=== PATIENT | female | born 1995 | race Caucasian/White ===

== ENCOUNTER 2016-03-14 12:57 | Emergency (ER) | payer OTHER ==
[2016-03-14] MEDS ORDERED: ONDANSETRON 4 MG TAB.RAPDIS PO ONE (13:40)
--- NOTE | 2016-03-14 13:41 | ER Document Report ---
ED Medical Screen (RME) - General Stated Complaint: HEAD INJURY Mode of Arrival: Ambulatory Information source: Patient Notes: Patient states that she hit her head on a microwave oven while at work. Patient denies any loss of consciousness. Patient does report some nausea but denies any vomiting. Patient complains of some dizziness. Patient states that she has not eaten at all today. hx: PTSD, anxiety I have greeted and performed a rapid initial assessment of this patient. A comprehensive ED assessment and evaluation of the patient, analysis of test results and completion of the medical decision making process will be conducted by additional ED providers. TRAVEL OUTSIDE OF THE [place] IN LAST 30 DAYS: No - Related Data Allergies/Adverse Reactions: oxycodone HCl [From Percocet] Adverse Reaction (Verified 03/14/16 13:38) Past Medical History Psychiatric Medical History: Reports: Hx Anxiety, Hx Depression Past Surgical History: Reports: Hx Adenoidectomy, Hx Tonsillectomy - Immunizations Hx Diphtheria, Pertussis, Tetanus Vaccination: Yes - 03/23/13
--- NOTE | 2016-03-14 15:02 | ER Document Report ---
ED Head/Face/Scalp Injury - General Chief Complaint: Head Injury Stated Complaint: HEAD INJURY Time seen by provider: 15:02 Mode of Arrival: Ambulatory Information source: Patient Notes: 20-year-old female hit the top of her head on the microwave twice at work today at [employer] at 7:30 this morning. She has felt nauseated and dizzy since. No loss of consciousness, no fall, no vomiting, Zofran has helped the nausea but she still feels slightly dizzy without vertigo when she stands. Denies . TRAVEL OUTSIDE OF THE [place] IN LAST 30 DAYS: No - Related Data Allergies/Adverse Reactions: oxycodone HCl [From Percocet] Adverse Reaction (Verified 03/14/16 13:38) Past Medical History - General Information source: Patient - Social History Smoking Status: Unknown if Ever Smoked Chew tobacco use (# tins/day): No Frequency of alcohol use: None Drug Abuse: None Lives with: Family Family History: Reviewed & Not Pertinent Patient has suicidal ideation: No Patient has homicidal ideation: No Renal/ Medical History: Denies: Hx Peritoneal Dialysis Psychiatric Medical History: Reports: Hx Anxiety, Hx Depression Past Surgical History: Reports: Hx Adenoidectomy, Hx Tonsillectomy - Immunizations Hx Diphtheria, Pertussis, Tetanus Vaccination: Yes - 03/23/13 Review of Systems - Review of Systems Constitutional: No symptoms reported EENT: No symptoms reported Cardiovascular: No symptoms reported Respiratory: No symptoms reported Gastrointestinal: No symptoms reported Genitourinary: No symptoms reported Female Genitourinary: No symptoms reported Musculoskeletal: See HPI Skin: No symptoms reported Hematologic/Lymphatic: No symptoms reported Neurological/Psychological: See HPI Physical Exam - Vital signs Vitals: Temp Pulse Resp BP Pulse Ox 97.5 F 77 14 115/48 L 97 03/14/16 13:38 03/14/16 13:38 03/14/16 13:38 03/14/16 13:38 03/14/16 13:38 Interpretation: Normal - General General appearance: Appears well, Alert In distress: None - HEENT Head: Normocephalic, Atraumatic Eyes: Normal Conjunctiva: Normal Extraocular movements intact: Yes Pupils: PERRL Nerve palsy: No Tympanic membrane: Normal Nasal: Normal Mouth/Lips: Normal Pharynx: Normal Neck: Supple. No: Lymphadenopathy - Respiratory Respiratory status: No respiratory distress Chest status: Nontender Breath sounds: Normal Chest palpation: Normal - Cardiovascular Rhythm: Regular Heart sounds: Normal auscultation Murmur: No - Abdominal Inspection: Normal Distension: No distension Bowel sounds: Normal Tenderness: Nontender. No: Tender Organomegaly: No organomegaly - Back Back: Normal, Nontender - Extremities General upper extremity: Normal inspection, Nontender, Normal color, Normal ROM , Normal temperature General lower extremity: Normal inspection, Nontender, Normal color, Normal ROM , Normal temperature, Normal weight bearing. No: Tammy's sign - Neurological Neuro grossly intact: Yes Cognition: Normal Orientation: AAOx4 Nii Coma Scale Eye Opening: Spontaneous Nii Coma Scale Verbal: Oriented [place] Coma Scale Motor: Obeys Commands Nii Coma Scale Total: 15 Speech: Normal Motor strength normal: LUE, RUE, LLE, RLE Sensory: Normal - Psychological Associated symptoms: Normal affect, Normal mood - Skin Skin Temperature: Warm Skin Moisture: Dry Skin Color: Normal Skin irregularity: negative: Rash Course - Re-evaluation Re-evalutation: 03/14/16 15:37 Vitals are stable. I have consulted with the supervisory physician per [facility] Guidelines. Dr. Walsh for ct scan order. Gait stable. No ataxia. Patient is drinking alesia bentley. 03/14/16 16:18 CT is negative. - Vital Signs Vital signs: Temp Pulse Resp BP Pulse Ox 97.5 F 77 14 115/48 L 97 03/14/16 13:38 03/14/16 13:38 03/14/16 13:38 03/14/16 13:38 03/14/16 13:38 Discharge - Discharge Clinical Impression: head injury, Nausea, Dizziness Contusion Qualifiers: Encounter type: initial encounter Contusion area: head Contusion of head detail : scalp Qualified Code(s): S00.03XA - Contusion of scalp, initial encounter Condition: Good Disposition: HOME, SELF-CARE Instructions: Head Injury Precautions ([facility]), Nausea or Vomiting, Nonspecific ( [facility]), Dizziness ([facility]), Contusion ([facility]), Neurologist Additional Instructions: eat before you go to work plenty of fluids tylenol for discomfort to er any concerns see neurologist if the dizziness persists. Forms: Return to Work Referrals: YOEL VALENTE MD [ACTIVE STAFF] - Follow up as needed
[2016-03-14 16:32] VITALS: BP 107/50
== END 2016-03-14 16:33 | disposition home or self-care (01) ==
LOC: ER 12:57
DX: S00.03XA Contusion of scalp, initial encounter (principal); R11.0 Nausea; R42 Dizziness and giddiness; W22.09XA Striking against other stationary object, initial encounter; Y92.511 Restaurant or cafe as the place of occurrence of the external cause; Y99.0 Civilian activity done for income or pay; Z88.6 Allergy status to analgesic agent
CPT/HCPCS: 99284; 82962; 70450; S0119

== ENCOUNTER → 2018-02-16 | Outpatient (CLI) | payer OTHER ==
--- NOTE | 2018-02-16 11:52 | RADIOLOGY REPORT (SQ) ---
EXAM DESCRIPTION: MRI RT LOWER JOINT WITHOUT COMPLETED DATE/TIME: 02/16/2018 8:02 am REASON FOR STUDY: RIGHT KNEE PAIN (M25.561) M25.561 PAIN IN RIGHT KNEE COMPARISON: None. TECHNIQUE: Rightknee images acquired and stored on PACS. Multiplanar images include fat sensitive s equences as T1, water sensitive sequences as FST2 or STIR, cartilage sensitive sequences as FSPD, and gradient echo sequences. LIMITATIONS: None. FINDINGS: JOINT AND BURSAE: No effusion. BONE CORTEX AND MARROW: No alteration of signal to suggest marrow replacement. No worrisome bone lesi ons. No occult fracture. ACL: Intact. No degeneration or ganglion cyst. PCL: Intact. MCL: Intact. No periligamentous edema or fluid. LCL: Intact. No periligamentous edema or fluid. MEDIAL MENISCUS: No tears. No abnormal signal. LATERAL MENISCUS: No tears. No abnormal signal. MEDIAL COMPARTMENT: Cartilage preserved. No bone bruises or reactive marrow edema. No osteophytes. LATERAL COMPARTMENT: Cartilage preserved. No bone bruises or reactive marrow edema. No osteophytes. PATELLA: No chondromalacia. No subchondral cysts. Medial and lateral retinacula intact. EXTENSOR MECHANISM: Intact. Quadriceps and patella tendons normal. SOFT TISSUES: Adjacent muscles and subcutaneous tissues normal. Normal flow void in popliteal artery and vein. OTHER: No other significant finding. IMPRESSION: NORMAL MRI OF THE KNEE. TECHNICAL DOCUMENTATION: JOB ID: [id number] [employer]- All Rights Reserved Reading location - IP/workstation name: [facility]
== END ==
LOC: RAD 07:12
PROVIDERS: ATTEND Family Medicine
DX: M25.561 Pain in right knee (principal); M79.89 Other specified soft tissue disorders

== ENCOUNTER 2019-02-02 18:52 | Emergency (ER) | payer OTHER ==
--- NOTE | 2019-02-02 19:08 | ER Document Report ---
ED Medical Screen (RME) - General Chief Complaint: Vag Bleeding, +preg <12wks Stated Complaint: VAGINAL BLEEDING Time Seen by Provider: 02/02/19 19:03 Primary Care Provider: HANNAH MARCUS MD [Primary Care Provider] - Follow up as needed Mode of Arrival: Ambulatory Information source: Patient Notes: Otherwise healthy 23-year-old female presents emergency department with vaginal bleeding in the setting of . Patient is a . She states she is approximately 8 weeks and started spotting just a few hours prior to arrival. She also reports she has Rh- blood type. She has not received RhoGam during this . Denies abdominal pain, nausea, vomiting, diarrhea. I have greeted and performed a rapid initial assessment of this patient. A comprehensive ED assessment and evaluation of the patient, analysis of test results and completion of the medical decision making process will be conducted by additional ED providers. I have specifically instructed the patient or family members with the patient to immediately return to any nursing staff should anything change in the patient's condition or with their chief complaint. TRAVEL OUTSIDE OF THE [place] IN LAST 30 DAYS: No - Related Data Allergies/Adverse Reactions: oxycodone HCl [From Percocet] Adverse Reaction (Verified 02/02/19 19:02) Past Medical History Renal/ Medical History: Denies: Hx Peritoneal Dialysis Psychiatric Medical History: Reports: Hx Anxiety, Hx Depression Past Surgical History: Reports: Hx Adenoidectomy, Hx Tonsillectomy - Immunizations Hx Diphtheria, Pertussis, Tetanus Vaccination: Yes - 03/23/13 Physical Exam - Vital signs Vitals: Temp Pulse Resp BP Pulse Ox 98.6 F 82 16 109/40 L 100 02/02/19 19:01 02/02/19 19:01 02/02/19 19:01 02/02/19 19:01 02/02/19 19:01 Course - Vital Signs Vital signs: Temp Pulse Resp BP Pulse Ox 98.6 F 82 16 109/40 L 100 02/02/19 19:01 02/02/19 19:01 02/02/19 19:01 02/02/19 19:01 02/02/19 19:01 Doctor's Discharge - Discharge Referrals: HANNAH MARCUS MD [Primary Care Provider] - Follow up as needed
[2019-02-02 19:34] LABS: ABSOLUTE EOSINOPHILS # (AUTO) 0.2 10^3/uL (0.0-0.6); ABSOLUTE LYMPHOCYTES (AUTO) 1.9 10^3/uL (0.5-4.7); ABSOLUTE MONOCYTES (AUTO) 0.4 10^3/uL (0.1-1.4); ABSOLUTE NEUT (AUTO) 4.6 10^3/uL (1.7-8.2); BASOPHILS % (AUTO) 0.3 % (0-2); EOSINOPHILS % (AUTO) 3.1 % (0-6); HEMATOCRIT 34.7 % (36.0-47.0); HEMOGLOBIN 12.1 g/dL (12.0-15.5); LYMPHOCYTES % (AUTO) 26.2 % (13-45); MEAN CORPUSCULAR HEMOGLOBIN 30.2 pg (27.0-33.4); MEAN CORPUSCULAR VOLUME 86 fl (80-97); MONOCYTES % (AUTO) 5.3 % (3-13); PLATELET COUNT 121 10^3/uL (150-450); RED BLOOD COUNT 4.02 10^6/uL (3.72-5.28); RED CELL DISTRIBUTION WIDTH 12.8 % (11.5-14.0); SEGMENTED NEUTROPHILS % (AUTO) 65.1 % (42-78); TOTAL CELLS COUNTED % (AUTO) 100 %; WHITE BLOOD COUNT 7.1 10^3/uL (4.0-10.5)
[2019-02-02 19:42] LABS: APPEARANCE,URINE SLIGHTLY-CLOUDY; BILIRUBIN,URINE NEGATIVE (NEGATIVE); COLOR,URINE YELLOW; GLUCOSE, URINE NEGATIVE (NEGATIVE); KETONES,URINE NEGATIVE (NEGATIVE); LEUKOCYTE ESTERASE,URINE TRACE (NEGATIVE); NITRITE,URINE NEGATIVE (NEGATIVE); PROTEIN,URINE NEGATIVE (NEGATIVE); URINE SPECIFIC GRAVITY 1.024
[2019-02-02 19:53] LABS: ALBUMIN 4.1 g/dL (3.5-5.0); ALKALINE PHOSPHATASE 42 U/L (38-126); ANION GAP 9 (5-19); ASPARTATE AMINO TRANSFERASE 20 U/L (14-36); BILIRUBIN,DIRECT 0.1 mg/dL (0.0-0.4); BILIRUBIN,TOTAL 0.5 mg/dL (0.2-1.3); BLOOD UREA NITROGEN 10 mg/dL (7-20); CALCIUM 9.5 mg/dL (8.4-10.2); CARBON DIOXIDE 24 mmol/L (22-30); CHLORIDE 105 mmol/L (98-107); GLUCOSE 82 mg/dL (75-110); POTASSIUM 3.9 mmol/L (3.6-5.0); TOTAL PROTEIN 6.8 g/dL (6.3-8.2)
--- NOTE | 2019-02-02 21:36 | RADIOLOGY REPORT (SQ) ---
EXAM DESCRIPTION: US LESS THAN 14 WEEKS COMPLETED DATE/TME: 02/02/2019 19:11 CLINICAL HISTORY: 23 years, Female, 8 weeks , vaginal bleed COMPARISON: None. TECHNIQUE: LIMITATIONS: None. FINDINGS: There is a live 9 week 3 day IUP, based on a crown-rump length of 2.7 cm. Embryonic cardiac activity was measured at 165 bpm. There is a 3.8 x 3.6 x 0.7 cm subchorionic hemorrhage, posteriorly. The uterus measures 9.7 x 9.6 x 8.4 cm. The right ovary is unremarkable. The left ovary was not visualized. The cervix measures 3.5 cm and is closed. IMPRESSION: Live IUP with a subchorionic hemorrhage copyright 2010 [employer]- All Rights Reserved
[2019-02-02] MEDS ORDERED: ONDANSETRON ODT 4 MG TAB (6 TAB/ER DISP) PO PRN (21:55)
--- NOTE | 2019-02-02 21:57 | ER Document Report ---
ED GI/ - General Chief Complaint: Vag Bleeding, +preg <12wks Stated Complaint: VAGINAL BLEEDING Time Seen by Provider: 02/02/19 19:03 Primary Care Provider: HANNAH MARCUS MD [NO LOCAL MD] - Follow up as needed Mode of Arrival: Ambulatory Notes: Patient is a 23-year-old female that comes to the emergency department for chief complaint of vaginal bleeding that started just prior to arrival. Patient reports intermittent mild cramping but denies any current symptoms. She denies dizziness, fever. She states she is having a lot of morning sickness but she has no complaints otherwise. She is G3, P2 at approximately 8 weeks gestation. She did have an ultrasound about a week ago confirming an intrauterine and states she was told at that time she had a subchorionic bleed which was small, however she states she did not receive RhoGam at that time. She states she did take Macrobid from that visit and completed it. She is not on any other medications at this time. TRAVEL OUTSIDE OF THE [place] IN LAST 30 DAYS: No - Related Data Allergies/Adverse Reactions: oxycodone HCl [From Percocet] Adverse Reaction (Verified 02/02/19 19:02) Home Medications: Zoloft and MVM Past Medical History - General Information source: Patient - Social History Smoking Status: Never Smoker Chew tobacco use (# tins/day): No Frequency of alcohol use: None Drug Abuse: None Lives with: Family Family History: Reviewed & Not Pertinent Patient has suicidal ideation: No Patient has homicidal ideation: No Renal/ Medical History: Denies: Hx Peritoneal Dialysis Psychiatric Medical History: Reports: Hx Anxiety, Hx Depression Past Surgical History: Reports: Hx Adenoidectomy, Hx Tonsillectomy - Immunizations Hx Diphtheria, Pertussis, Tetanus Vaccination: Yes - 03/23/13 Review of Systems - Review of Systems Constitutional: No symptoms reported EENT: No symptoms reported Cardiovascular: No symptoms reported Respiratory: No symptoms reported Gastrointestinal: See HPI Genitourinary: See HPI Female Genitourinary: See HPI Musculoskeletal: No symptoms reported Skin: No symptoms reported Hematologic/Lymphatic: No symptoms reported Neurological/Psychological: No symptoms reported Physical Exam - Vital signs Vitals: Temp Pulse Resp BP Pulse Ox 98.6 F 82 16 109/40 L 100 02/02/19 19:01 02/02/19 19:01 02/02/19 19:01 02/02/19 19:01 02/02/19 19:01 - Notes Notes: GENERAL: Alert, interacts well. No acute distress. HEAD: Normocephalic, atraumatic. EYES: Pupils equal, round, and reactive to light. Extraocular movements intact. ENT: Oral mucosa moist, tongue midline. Oropharynx unremarkable. Airway patent. LUNGS: Clear to auscultation bilaterally, no wheezes, rales, or rhonchi. No respiratory distress. HEART: Regular rate and rhythm. No murmur ABDOMEN: Soft, non-tender. Non-distended. EXTREMITIES: Moves all 4 extremities spontaneously. No edema, normal radial and dorsalis pedis pulses bilaterally. No cyanosis. BACK: no cervical, thoracic, lumbar midline tenderness. No saddle anesthesia, normal distal neurovascular exam. Moves all extremities in full range of motion. NEUROLOGICAL: Alert and oriented x3. Normal speech. Cranial nerves II through XII grossly intact. PSYCH: Normal affect, normal mood. SKIN: Warm, dry, normal turgor. No rashes or lesions noted. Course - Re-evaluation Re-evalutation: CBC unremarkable including hemoglobin, chemistry unremarkable, urinalysis unremarkable. RhoGam is indicated and has not been given previously, she was given this tonight. Ultrasound shows subchorionic hemorrhage with living intrauterine . Physical exam is unremarkable, nontender abdomen, patient does not have any current complaints or any current bleeding reported. Discussed subchronic bleed, RhoGam, work-up in detail. Patient is requesting nausea medication for home, she was provided with this. Discussed details, follow-up, return precautions at length. Patient states appreciation and agreement. Stable at time of discharge. - Vital Signs Vital signs: Temp Pulse Resp BP Pulse Ox 98.3 F 75 20 106/42 L 99 02/02/19 23:00 02/02/19 23:00 02/02/19 23:00 02/02/19 23:00 02/02/19 23:00 - Laboratory Result Diagrams: 02/02/19 19:20 02/02/19 19:20 Laboratory results interpreted by me: 02/02/19 02/02/19 02/02/19 19:20 19:20 19:20 Hct 34.7 L Plt Count 121 L Creatinine 0.49 L Beta HCG, Quant Urine Urobilinogen 4.0 H Ur Leukocyte Esterase TRACE H Urine Ascorbic Acid 40 H 02/02/19 19:20 Hct Plt Count Creatinine Beta HCG, Quant 182927.00 H Urine Urobilinogen Ur Leukocyte Esterase Urine Ascorbic Acid Discharge - Discharge Clinical Impression: Abdominal cramping affecting , Vaginal bleeding affecting early Condition: Stable Disposition: HOME, SELF-CARE Additional Instructions: Your ultrasound shows a living in the uterus at 9 weeks and 3 days. There is also a subchorionic hemorrhage as we discussed. Please perform pelvic rest (avoid heavy lifting, running, intense physical activity, sexual intercourse, etc. until cleared by [facility]). Take Tylenol for pain. Use nausea medication as prescribed if needed. You did receive RhoGam tonight. Remember to take vitamins. Follow-up with [facility] for additional evaluation and management. Return if you worsen including uncontrolled vomiting, severe worsening pain, heavy bleeding with dizziness or passing out, or any other concerning or worsening symptoms. Prescriptions: Metoclopramide HCl [Reglan] 5 mg PO ASDIR PRN #30 tablet PRN Reason: Referrals: HANNAH MARCUS MD [NO LOCAL MD] - Follow up as needed
[2019-02-02 23:01] VITALS: BP 106/42
== END 2019-02-02 23:05 | disposition home or self-care (01) ==
LOC: ER 18:52
DX: O20.8 Other hemorrhage in early pregnancy (principal); O26.891 Other specified pregnancy related conditions, first trimester; R10.9 Unspecified abdominal pain; R11.0 Nausea; O99.341 Other mental disorders complicating pregnancy, first trimester; F32.9 Major depressive disorder, single episode, unspecified; F41.9 Anxiety disorder, unspecified; Z79.899 Other long term (current) drug therapy; Z3A.09 9 weeks gestation of pregnancy
CPT/HCPCS: 99284; 96372; 86900; 86901; 36415; 86850; 84702; 85025; 80053; 81001; 76801; J2790

== ENCOUNTER → 2019-06-18 | Outpatient (CLI) | payer MEDICAID | LOC: OD 13:36 | PROVIDERS: ATTEND Advanced Practice Midwife | DX: Z34.83 Encounter for supervision of other normal pregnancy, third trimester (principal) | CPT/HCPCS: 36415; 86900; 86901 ==

== ENCOUNTER 2019-08-22 15:37 | Outpatient (CLI) | payer MEDICAID ==
[2019-08-22 17:54] LABS: APPEARANCE,URINE SLIGHTLY-CLOUDY; BILIRUBIN,URINE NEGATIVE (NEGATIVE); COLOR,URINE YELLOW; GLUCOSE, URINE NEGATIVE (NEGATIVE); KETONES,URINE NEGATIVE (NEGATIVE); LEUKOCYTE ESTERASE,URINE NEGATIVE (NEGATIVE); NITRITE,URINE NEGATIVE (NEGATIVE); PROTEIN,URINE NEGATIVE (NEGATIVE); URINE SPECIFIC GRAVITY 1.014; UROBILINOGEN,URINE NEGATIVE mg/dL (<2.0)
[2019-08-22 18:01] LABS: URINE AMPHETAMINES SCREEN NEGATIVE; URINE BARBITURATES SCREEN NEGATIVE; URINE BENZODIAZEPINES SCREEN NEGATIVE; URINE COCAINE SCREEN NEGATIVE; URINE MARIJUANA (THC) SCREEN NEGATIVE; URINE METHADONE SCREEN NEGATIVE; URINE PHENCYCLIDINE SCREEN NEGATIVE
== END 2019-08-22 18:30 | disposition home or self-care (01) ==
LOC: LC 15:37
PROVIDERS: ATTEND Obstetrics & Gynecology
DX: O47.1 False labor at or after 37 completed weeks of gestation (principal); O99.283 Endocrine, nutritional and metabolic diseases complicating pregnancy, third trimester; E86.0 Dehydration; Z3A.37 37 weeks gestation of pregnancy; Z88.6 Allergy status to analgesic agent
CPT/HCPCS: 80307; 81001